=== PATIENT | male | born 1960 | race Caucasian/White ===

== ENCOUNTER 2017-05-17 17:00 | Emergency (ER) | payer SELFPAY ==
[2017-05-17 17:06] VITALS: BP 179/80; BMI 29.8
--- NOTE | 2017-05-17 17:07 | DR.CONMALE ---
HPI - Time Seen Time seen: 17:02 - Complaint Chief Complaint Doctors Comments: Patient presents with complaint of constiption. He takes medicatin with narcotics that has made him constipated. The use of OTC medication has not helped. PMH - PMH Past Medical History: Anxiety, Coronary Artery Disease, Depression, Dyslipidemia , Hypertension, PR Past Surgical History: Yes Surgical History: CABG/Valve Surgery, Ortho Surgery - Social History Do you use any recreational Drugs:: No ROS - Review of Systems Eyes: No Symptoms Reported ENTM: No Symptoms Reported Respiratoy: No Symptoms Reported Cardiovascular: No Symptoms Reported Gastrointestinal/Abdominal: No Symptoms Reported Genitourinary: No Symptoms Reported Neurological: No Symptoms Reported Musculoskeletal: No Symptoms Reported Integumentary: No Symptoms Reported Hematologic/Lymphatic: No Symptoms Reported Endocrine: No Symptoms Reported Psychiatric: No Symptoms Reported All Other Systems: Reviewed and Negative PE - Vital Signs Vital Signs: BP BP 03/18/16 17:15 98/61 98/61 - General Limitations: No Limitations General Appearance: Alert, In No Apparent Distress - Head Head Exam: Normal Inspection, Atraumatic - Eyes Eye exam: Normal Appearance, PERRL, EOMI - ENT ENT Exam: Normal Exam - Neck Neck Exam: Normal Inspection - Chest Chest Inspection: Normal Inspection - Respiratory Respiratory Exam: Normal Lung Sounds Bilat Respiratory Exam: Bilateral Clear to Auscultation - Cardiovascular Cardiovascular Exam: Regular Rate, Normal Rhythm - Gastrointestinal Abdominal Exam: Normal Inspection, Normal Bowel Sounds Abdominal Tenderness: negative: RUQ, RLQ, LUQ, LLQ, Epigastrium, Suprapubic, Diffuse, Mild, Moderate, Severe, Other - Rectal Rectal: Deferred - Back Back Exam: Normal Inspection - Neurological Neurological Exam: Alert, Oriented X3, CN II-XII Intact - Psychiatric Psychiatric Exam: Normal Affect - Skin Skin Exam: Warm, Dry, Intact - Diagnosis Discharge Problem: Constipation due to pain medication - Discharge Plan Condition: Stable - Follow ups/Referrals Follow ups/Referrals: Sarthak Lerner [Primary Care Provider] - 3 days - Instructions
== END 2017-05-17 17:20 | disposition home or self-care (01) ==
LOC: ER 17:11
DX: K59.09 Other constipation (principal)
CPT/HCPCS: 99281; 99282